=== PATIENT | male | born 2000 | race African-American/Black ===

== ENCOUNTER 2022-02-23 14:26 | Emergency (ER) | payer OTHER ==
[~2022-02-23] VITALS: Ht 180.3 cm; Wt 77.3 kg
[2022-02-23 14:34] VITALS: BP 130/73
[2022-02-23 15:14] LABS: BASO % 0.3 % (0.0-1.0); EOS # 0.2 10^3/uL (0.0-0.5); EOS % 2.1 % (0.0-3.0); HEMATOCRIT 35.5 % (42.0-52.0); HEMOGLOBIN 12.9 g/dl (13.5-17.5); LYMPH # 2.1 10^3/uL (1.5-5.0); LYMPH % 27.2 % (24.0-44.0); MEAN CORPUSCULAR HEMOGLOBIN 31.5 pg (27.0-33.0); MEAN CORPUSCULAR HGB CONC 36.3 g/dl (32.0-36.5); MEAN CORPUSCULAR VOLUME 86.8 fl (80.0-96.0); MONO # 0.8 10^3/uL (0.0-0.8); MONO % 10.6 % (2.0-8.0); NEUTROPHILS # 4.6 10^3/uL (1.5-8.5); NEUTROPHILS % 59.4 % (36.0-66.0); PLATELET COUNT, AUTOMATED 277 10^3/uL (150-450); RED BLOOD COUNT 4.09 10^6/uL (4.30-6.10); WHITE BLOOD COUNT 7.8 10^3/uL (4.0-10.0)
[2022-02-23 15:30] LABS: INR 1.14
[2022-02-23 15:31] LABS: PARTIAL THROMBOPLASTIN TIME 34.4 SECONDS (25.9-37.0)
[2022-02-23 15:52] LABS: RSV AMPLIFICATION NEGATIVE (NEGATIVE)
[2022-02-23] MEDS ORDERED: FLON1SPR NARES (16:27)
== END 2022-02-23 16:43 | disposition home or self-care (01) ==
LOC: M ED 14:26
DX: R04.0 Epistaxis (principal); J00 Acute nasopharyngitis [common cold]